=== PATIENT | male | born 1960 | race Caucasian/White ===

== ENCOUNTER 2023-02-20 18:56 | Emergency (ER) | payer OTHER ==
[~2023-02-20] VITALS: Ht 180 cm; Wt 93.0 kg
[2023-02-20] MEDS ORDERED: RT-Ipratropium/Albuterol NEB 3 ML VIAL INH ONE (19:30)
[2023-02-20 19:33] LABS: BASOPHILS # (AUTO) 0.1 10^3/uL (0.0-0.1); BASOPHILS % (AUTO) 1 % (0-10); EOSINOPHILS # (AUTO) 0.4 10^3/uL (0.0-0.3); EOSINOPHILS % (AUTO) 3 % (0-10); HEMATOCRIT 35 % (40-54); HEMOGLOBIN 11.1 g/dL (13.3-17.7); LYMPHOCYTES # (AUTO) 2.5 10^3/uL (1.0-4.0); LYMPHOCYTES % (AUTO) 18 % (12-44); MEAN CORPUSCULAR HEMOGLOBIN 30 pg (25-34); MEAN CORPUSCULAR HGB CONC 32 g/dL (32-36); MEAN CORPUSCULAR VOLUME 93 fL (80-99); MEAN PLATELET VOLUME 9.4 fL (9.0-12.2); MONOCYTES # (AUTO) 0.9 10^3/uL (0.0-1.0); MONOCYTES % (AUTO) 6 % (0-12); NEUTROPHILS # (AUTO) 10.2 10^3/uL (1.8-7.8); NEUTROPHILS % (AUTO) 72 % (42-75); PLATELET COUNT 410 10^3/uL (130-400); WHITE BLOOD COUNT 14.1 10^3/uL (4.3-11.0)
[2023-02-20 19:34] LABS: PROTHROMBIN TIME PATIENT 13.6 SEC (12.2-14.7)
[2023-02-20 19:36] LABS: ALANINE AMINOTRANSFERASE 52 U/L (0-55); ALBUMIN 3.9 GM/DL (3.2-4.5); ALKALINE PHOSPHATASE 76 U/L (40-136); BILIRUBIN,TOTAL 0.4 MG/DL (0.1-1.0); BUN/CREATININE RATIO 14; CALCIUM 9.7 MG/DL (8.5-10.1); CARBON DIOXIDE 26 MMOL/L (21-32); CHLORIDE 98 MMOL/L (98-107); CREATININE SERUM 1.41 MG/DL (0.60-1.30); GFR ESTIMATED 56; GLUCOSE 199 MG/DL (70-105); MAGNESIUM 1.9 MG/DL (1.6-2.4); POTASSIUM 5.3 MMOL/L (3.6-5.0); SODIUM 134 MMOL/L (135-145); TOTAL PROTEIN 7.3 GM/DL (6.4-8.2)
--- NOTE | 2023-02-20 19:44 | Diagnostic Imaging Report ---
INDICATION: Shortness of breath Frontal chest obtained at 7:30 PM and compared with 02/07/2023. Compared to the prior study, the patient has undergone sternotomy. The heart is borderline in size. There is no focal infiltrate or pneumothorax or pleural fluid. IMPRESSION: Poststernotomy changes. No focal infiltrate or pneumothorax or pleural fluid. Dictated by: Dictated on workstation # [id number]
[2023-02-20 19:52] LABS: EOSINOPHILS % (MANUAL) 1 %; LYMPHOCYTES % (MANUAL) 16 %; MONOCYTES % (MANUAL) 2 %; NEUTROPHILS % (MANUAL) 81 %
[2023-02-20 19:58] LABS: FIBRIN DEGRADATION PRODUCTS 4.21 UG/ML (0.00-0.49)
[2023-02-20] MEDS ORDERED: IOHEXOL 350 MG/ML 100 ML (OMNIPAQUE 350) VIAL IV ONE (20:30)
[2023-02-20] MEDS ORDERED: NS 100 ML (IVPB) BAG IV ONE (20:30)
[2023-02-20] MEDS ORDERED: HOLD METFORMIN - RECEIVED CONTRAST 20 ML VIAL IV SCH (20:30)
--- NOTE | 2023-02-20 21:00 | Diagnostic Imaging Report ---
INDICATION: Shortness of breath, recent coronary bypass. CTA chest obtained with IV contrast bolus and axial slices and 3-D reconstructions. Dose reduction protocol was used There is no prior CTA chest for comparison. The pulmonary parenchymal vessels are well-opacified with no CT evidence of significant pulmonary emboli. The thoracic aorta shows no dissection or aneurysm. Great vessel origins are patent. There are postoperative changes with coronary bypass. There is no evidence of mediastinal hematoma or mass. There are no enlarged axillary nodes. There is a small left pleural effusion. There is no significant right pleural fluid or pericardial fluid. Lung windows show no pneumothorax. There is motion artifact. There is some mild bibasilar infiltrate versus atelectasis, left greater than right. Visualized portions of the upper abdomen demonstrate a large amount of stool throughout the colon. IMPRESSION: No CT evidence of pulmonary emboli or acute aortic pathology. Evidence of recent coronary bypass. There is no mediastinal hematoma. There is a small left pleural effusion. There is mild bibasilar infiltrate versus atelectasis, left greater than right. Dictated by: Dictated on workstation # [id number]
[2023-02-20] MEDS ORDERED: cefTRIAXone IV/IM 1,000 MG in NS (IVPB) 50 ML 50 ML IV ONE (21:30)
[2023-02-20] MEDS ORDERED: BENZONATATE 100 MG CAPSULE PO ONE (22:15)
--- NOTE | 2023-02-20 22:22 | ED Cardiac General ---
History of Present Illness General Chief Complaint: Cardiac/General Problems Stated Complaint: SOB,CARDIAC Nursing Triage Note: PT TO FS 03 W C/O INCREASED SOA SX CABG ON 02/10/23 AT [facility]. PT CONCERNED FOR LEFT LEG INCISION INFECTION, REPORTS COUGH AND CP W COUGH. PT A&OX4. History of Present Illness Date Seen by Provider: Feb 20, 2023 Time Seen by Provider: 19:20 Initial Comments 63-year-old male patient presented POV with his with complaining of shortness of breath. Patient had CABG on February 10 and was discharged home 5 days ago and since then has had dry cough and shortness of breath without chest pain, fever and chills, nausea and vomiting, leg edema or pain, history of DVT and PE. Patient had small erythema and discharge from left leg surgical wound and called his surgeon today and was a started on Cipro. Patient had O2 sat of 96% at room air and temperature of 37.6 at arrival to ER. Allergies and Home Medications Allergies Coded Allergies: No Known Drug Allergies (Unverified , 02/07/23) Patient Home Medication List Home Medication List Reviewed: Yes Albuterol Sulfate (Ventolin Hfa) 1 Puff Puff, 2 PUFF INH Q4H Prescribed by: Kim lawson on 02/20/232226 Amoxicillin/Potassium Clav (Amox Tr-K Clv 875-125 mg Tab) 875 Mg-125 Mg Tablet, 1 EACH PO Q12H Prescribed by: Kim lawson on 02/20/232226 Benzonatate (Tessalon Perles) 100 Mg Capsule, 100 MG PO TID Prescribed by: Kim lawson on 02/20/232226 Review of Systems Review of Systems Constitutional: see HPI EENTM: No Symptoms Reported Respiratory: See HPI Cardiovascular: See HPI Gastrointestinal: No Symptoms Reported Genitourinary: No Symptoms Reported Musculoskeletal: no symptoms reported Psychiatric/Neurological: No Symptoms Reported Endocrine: No Symptoms Reported Hematologic/Lymphatic: No Symptoms Reported All Other Systems Reviewed Negative Unless Noted: Yes Past Epkmlky-Xfkefn-Hihhvf Hx Patient Social History Tobacco Use?: No Use of E-Cig and/or Vaping dev: No Substance use?: No Alcohol Use?: No Past Medical History Surgery/Hospitalization HX: CABG Physical Exam Vital Signs Vital Signs - First Documented 02/20/23 19:00 Temp 37.6 Pulse 87 Resp 22 B/P (MAP) 139/73 (95) Pulse Ox 96 O2 Delivery Room Air Capillary Refill : Less Than 3 Seconds Height, Weight, BMI Height: '" Weight: lbs. oz. kg; 28.00 BMI Method: General Appearance: Mild Distress HEENT: PERRL/EOMI, Normal ENT Inspection Neck: Full Range of Motion, Normal Inspection, Non Tender Respiratory: Chest Non Tender, No Accessory Muscle Use, No Respiratory Distress, Rales (Left lung), Other (Clean fresh mid sternotomy surgical wound) Cardiovascular: Regular Rate, Rhythm, No Edema, No Gallop Gastrointestinal: Normal Bowel Sounds, No Organomegaly, No Pulsatile Mass, Non Tender, Soft Extremity: Normal Capillary Refill, Normal Range of Motion, Non Tender, No Calf Tenderness, Other (Mild erythema of surgical wound of left leg with small am ount of serous drainage) Neurologic/Psychiatric: Alert, Oriented x3 Skin: Normal Color, Warm/Dry Lymphatic: No Adenopathy Focused Exam Lactate Level 02/20/23 19:02: Lactic Acid Level 1.71 Lactic Acid Level Laboratory Tests Test 02/20/23 19:02 Lactic Acid Level 1.71 MMOL/L (0.50-2.00) Progress/Results/Core Measures Results/Orders Lab Results Laboratory Tests Test 02/20/23 19:02 Range/Units White Blood Count 14.1 H 4.3-11.0 10^3/uL Red Blood Count 3.75 L 4.30-5.52 10^6/uL Hemoglobin 11.1 L 13.3-17.7 g/dL Hematocrit 35 L 40-54 % Mean Corpuscular Volume 93 80-99 fL Mean Corpuscular Hemoglobin 30 25-34 pg Mean Corpuscular Hemoglobin Concent 32 32-36 g/dL Red Cell Distribution Width 13.1 10.0-14.5 % Platelet Count 410 H 130-400 10^3/uL Mean Platelet Volume 9.4 9.0-12.2 fL Immature Granulocyte % (Auto) 0 % Neutrophils (%) (Auto) 72 42-75 % Lymphocytes (%) (Auto) 18 12-44 % Monocytes (%) (Auto) 6 0-12 % Eosinophils (%) (Auto) 3 0-10 % Basophils (%) (Auto) 1 0-10 % Neutrophils # (Auto) 10.2 H 1.8-7.8 10^3/uL Lymphocytes # (Auto) 2.5 1.0-4.0 10^3/uL Monocytes # (Auto) 0.9 0.0-1.0 10^3/uL Eosinophils # (Auto) 0.4 H 0.0-0.3 10^3/uL Basophils # (Auto) 0.1 0.0-0.1 10^3/uL Immature Granulocyte # (Auto) 0.1 0.0-0.1 10^3/uL Neutrophils % (Manual) 81 % Lymphocytes % (Manual) 16 % Monocytes % (Manual) 2 % Eosinophils % (Manual) 1 % Prothrombin Time 13.6 12.2-14.7 SEC INR Comment 1.0 0.8-1.4 Activated Partial Thromboplast Time 35 24-35 SEC D-Dimer 4.21 H 0.00-0.49 UG/ML Sodium Level 134 L 135-145 MMOL/L Potassium Level 5.3 H 3.6-5.0 MMOL/L Chloride Level 98 98-107 MMOL/L Carbon Dioxide Level 26 21-32 MMOL/L Anion Gap 10 5-14 MMOL/L Blood Urea Nitrogen 20 H 7-18 MG/DL Creatinine 1.41 H 0.60-1.30 MG/DL Estimat Glomerular Filtration Rate 56 BUN/Creatinine Ratio 14 Glucose Level 199 H 70-105 MG/DL Lactic Acid Level 1.71 0.50-2.00 MMOL/L Calcium Level 9.7 8.5-10.1 MG/DL Corrected Calcium 9.8 8.5-10.1 MG/DL Magnesium Level 1.9 1.6-2.4 MG/DL Total Bilirubin 0.4 0.1-1.0 MG/DL Aspartate Amino Transf (AST/SGOT) 32 5-34 U/L Alanine Aminotransferase (ALT/SGPT) 52 0-55 U/L Alkaline Phosphatase 76 40-136 U/L Troponin I < 0.30 <0.30 NG/ML Pro-B-Type Natriuretic Peptide 2250.0 H <125.0 PG/ML Total Protein 7.3 6.4-8.2 GM/DL Albumin 3.9 3.2-4.5 GM/DL Influenza Type A (RT-PCR) Not Detected Not Detecte Influenza Type B (RT-PCR) Not Detected Not Detecte SARS-CoV-2 RNA (RT-PCR) Not Detected Not Detecte My Orders Orders - KIM LAWSON MD Cbc And Automated Diff (02/20/23:) Magnesium (02/20/23:) Chest 1 View Ap/Pa Only (02/20/23) Ekg Tracing (02/20/23:) Comprehensive Metabolic Panel (02/20/23:) Protime With Inr (02/20/23) Partial Thromboplastin Time (02/20/23) O2 (02/20/23:) Monitor-Rhythm Ecg Trace Only (02/20/23:) Ed Iv/Invasive Line Start (02/20/23) Troponin I Fs (02/20/23) Probnp Fs (02/20/23) Lactic Acid Analyzer (02/20/23:) Fibrin Degradation Products (02/20/23:) Ipratropium/Albuterol Inh Soln (Ipratrop (02/20/23:) Svn Small Volume Nebulizer (02/20/23:) Covid 19 Inhouse Test (02/20/23:) Influenza A And B By Pcr (02/20/23:) Manual Differential (02/20/23 19:02) Ct Angio Chest W (R/O Pe) (02/20/23 20:30) Iohexol Injection (Omnipaque 350 Mg/Ml 1 (02/20/23 20:30) Received Contrast (Hold Metformin- Contr (02/20/23 20:30) Ns (Ivpb) 100 Ml (Sodium Chloride 0.9% 1 (02/20/23 20:30) Ceftriaxone Iv/Im (Ceftriaxone Iv/Im) (02/20/23 21:30) Benzonatate Capsule (Benzonatate Capsule (02/20/23 22:15) Medications Given in ED Current Medications Medications Dose Ordered Sig/Betzaida Route Start Time Stop Time Status Last Admin Dose Admin Albuterol/ Ipratropium 3 ml ONCE ONCE INH 02/20/23 19:30 02/20/23 19:31 DC 02/20/23 19:36 3 ML Benzonatate 200 mg ONCE ONCE PO 02/20/23 22:15 02/20/23 22:16 DC 02/20/23 22:14 200 MG Ceftriaxone Sodium 1000 mg/ Sodium Chloride 50 ml @ 100 mls/hr ONCE ONCE IV 02/20/23 21:30 02/20/23 21:59 DC 02/20/23 21:34 100 MLS/HR Iohexol 100 ml ONCE ONCE IV 02/20/23 20:30 02/20/23 20:31 DC 02/20/23 20:51 100 ML Sodium Chloride 100 ml ONCE ONCE IV 02/20/23 20:30 02/20/23 20:31 DC 02/20/23 20:51 100 ML Vital Signs/I&O 02/20/23 19:00 Temp 37.6 Pulse 87 Resp 22 B/P (MAP) 139/73 (95) Pulse Ox 96 O2 Delivery Room Air Blood Pressure Mean: 95 Progress Progress Note : Progress Note Differential diagnosis: Pulmonary embolism, pneumonia, pleural effusion, CHF, pericardial effusion. Patient with history of recent CABG and complaining of shortness of breath with low-grade fever at arrival to ER. Patient treated with oxygen and DuoNeb with improvement of his condition. CBC, CMP, BNP, troponin, lactic acid, PT/INR, PTT, D-dimer was ordered and reviewed by me and showed white count of 14,000 without elevation of lactic acid and BNP of 2200 with normal troponin. Chest x- ray interpreted by me and did not show acute finding. D-dimer was 4.5 and CTA chest for PE was ordered and interpreted by radiologist and reviewed by me and did not show PE but showed bilateral infiltrate. Patient treated with Rocephin in ER. Patient had surgery by Dr. Rubio at [facility] and on-call cardiothoracic surgeon Dr. Black was consulted at 2222 and agreed with plan of care and recommended to give Augmentin as outpatient for pneumonia and follow-up with his surgeon. Patient and his updated frequently about test result and plan of care and all questions was addressed. Initial ECG Impression Date: Feb 20, 2023 Initial ECG Impression Time: 19:02 Initial ECG Rate: 88 Initial ECG Rhythm: Normal Sinus Initial ECG Intervals EKG interpreted by me and showed sinus rhythm at rate of 88, MT interval of 167 and QT of 390 and QTc of 436, QRS duration of 143, left atrial enlargement, indeterminate axis, right bundle branch block, Q waves in inferior leads, no acute ST and T wave elevation. Diagnostic Imaging Diagonstic Imaging: Xray, CT Plain Films/CT/US/NM/MRI: chest Comments 1 view chest x-ray interpreted by me and did not show acute finding. 1 view chest x-ray and CT chest interpreted by radiologist and reviewed by me and showed[facility] [place] [place] NAME: KATRINA BOO Isai MED REC#: [id number] PT STATUS: REG ER : 1960 PHYSICIAN: KIM LAWSON MD ADMIT DATE: 02/20/23/ER FS Signed Date of Exam:02/20/23 CT ANGIO CHEST W (R/O PE) INDICATION: Shortness of breath, recent coronary bypass. CTA chest obtained with IV contrast bolus and axial slices and 3-D reconstructions. Dose reduction protocol was used There is no prior CTA chest for comparison. The pulmonary parenchymal vessels are well-opacified with no CT evidence of significant pulmonary emboli. The thoracic aorta shows no dissection or aneurysm. Great vessel origins are patent. There are postoperative changes with coronary bypass. There is no evidence of mediastinal hematoma or mass. There are no enlarged axillary nodes. There is a small left pleural effusion. There is no significant right pleural fluid or pericardial fluid. Lung windows show no pneumothorax. There is motion artifact. There is some mild bibasilar infiltrate versus atelectasis, left greater than right. Visualized portions of the upper abdomen demonstrate a large amount of stool throughout the colon. IMPRESSION: No CT evidence of pulmonary emboli or acute aortic pathology. Evidence of recent coronary bypass. There is no mediastinal hematoma. There is a small left pleural effusion. There is mild bibasilar infiltrate versus atelectasis, left greater than right. Dictated by: Dictated on workstation # [id number] Dict: 02/20/232054 Trans: 02/20/232131 [facility] [id number] Interpreted by: LUIS ANTONIO ATNG MD Electronically signed by: LUIS ANTONIO TANG MD 02/20/232131 [facility] [place] [place] NAME: EMAKATRINA Alex MED REC#: [id number] PT STATUS: REG ER : 1960 PHYSICIAN: KIM LAWSON MD ADMIT DATE: 02/20/23/ER FS Signed Date of Exam:02/20/23 CHEST 1 VIEW AP/PA ONLY INDICATION: Shortness of breath Frontal chest obtained at 7:30 PM and compared with 02/07/2023. Compared to the prior study, the patient has undergone sternotomy. The heart is borderline in size. There is no focal infiltrate or pneumothorax or pleural fluid. IMPRESSION: Poststernotomy changes. No focal infiltrate or pneumothorax or pleural fluid. Dictated by: Dictated on workstation # [id number] Dict: 02/20/231941 Trans: 02/20/231944 [facility] [id number] Interpreted by: LUIS ANTONIO TANG MD Electronically signed by: LUIS ANTONIO TANG MD 02/20/231944 Departure Impression Primary Impression: Pneumonia Qualified Codes: J18.9 - Pneumonia, unspecified organism Additional Impressions: Shortness of breath S/P CABG (coronary artery bypass graft) Elevated brain natriuretic peptide (BNP) level Renal insufficiency Disposition: 01 HOME, SELF-CARE Condition: Improved Departure-Patient Inst. Decision time for Depature: 22:24 Referrals: GER SIMMS MD (PCP/Family) Primary Care Physician Patient Instructions: Pneumonia in adults Add. Discharge Instructions: Continue home Cipro Follow-up with your surgeon in 2 or 3 days Return to ER as needed All discharge instructions reviewed with patient and/or family. Voiced understanding. Scripts Albuterol Sulfate (VENTOLIN HFA) 1 Puff Puff 2 PUFF INH Q4H, #1 EA 1 PUFF = 90 MCG Prov: KIM LAWSON MD 02/20/23 Benzonatate (TESSALON PERLES) 100 Mg Capsule 100 MG PO TID for cough, #20 CAP Prov: KIM LAWSON MD 02/20/23 Amoxicillin/Potassium Clav (Amox Tr-K Clv 875-125 mg Tab) 875 Mg-125 Mg Tablet 1 EACH PO Q12H, #14 TAB Prov: KIM LAWSON MD 02/20/23 KIM LAWSON MD Feb 20, 2023 22:22
[2023-02-20] MEDS ORDERED: BENZ100C18 PO (22:27)
[2023-02-20] MEDS ORDERED: RT-ALBUINH INH (22:27)
[2023-02-20] MEDS ORDERED: AMOX1TAB12 PO (22:27)
[2023-02-20 22:39] VITALS: BP 132/64
== END 2023-02-20 22:39 | disposition home or self-care (01) ==
LOC: EDUNIT# 18:56 → ER FS 18:59
DX: J18.9 Pneumonia, unspecified organism (principal); N28.9 Disorder of kidney and ureter, unspecified; R79.89 Other specified abnormal findings of blood chemistry; Z95.1 Presence of aortocoronary bypass graft; Z20.822 Contact with and (suspected) exposure to COVID-19
CPT/HCPCS: 36415; 71045; 71275; 80053; 83605; 83735; 83880; 84484; 85007; 85027; 85379; 85610; 85730; 87636; 93005; 93041; Q9967